=== PATIENT | female | born 1980 | race Caucasian/White ===

== ENCOUNTER 2017-09-17 07:03 | Day surgery (SDC) | payer OTHER ==
[~2017-09-17] VITALS: Ht 167.6 cm; Wt 103.9 kg
[~2017-09-17 07:03] MED LIST: AMBIEN10 MG PO; CYANOCOBAL1000 MCG/2 IM; ERGOCALCIF50000 UNIT PO; MOBIC15 MG PO; PHENTERMINE HCL15 MG PO; PROGESTERONE100 MG PO; SYNTHROID25 MCG PO; TRAZODONE HCL50 MG PO; [UNRECOGNIZED DRUG - OTHER] PO
[2017-09-17] MEDS ORDERED: NORCO 5/3251 TABLET PO (11:19)
[2017-09-17 12:07] VITALS: BP 107/63
[2017-09-17 12:51] VITALS: BP 97/55
[2017-09-17 14:48] VITALS: BP 132/77
== END 2017-09-17 15:12 | disposition home or self-care (01) ==
LOC: SDC 07:03
PROC: 0FT44ZZ Resection of Gallbladder, Percutaneous Endoscopic Approach (ICD-10-PCS; principal; 2017-09-17)
DX: K80.10 Calculus of gallbladder with chronic cholecystitis without obstruction (principal); E03.9 Hypothyroidism, unspecified; E66.9 Obesity, unspecified; Z68.36 Body mass index [BMI] 36.0-36.9, adult; Z87.891 Personal history of nicotine dependence
CPT/HCPCS: 88304; J0330; J1170; J2405; J2710; J3010; S0074